=== PATIENT | male | born 1955 | race Caucasian/White ===

== ENCOUNTER → 2017-03-03 | Outpatient (CLI) | payer OTHER | LOC: M RAD 07:38 | DX: I65.23 Occlusion and stenosis of bilateral carotid arteries (principal) | CPT/HCPCS: 93880 ==

== ENCOUNTER → 2017-03-05 | Outpatient (CLI) | payer OTHER | LOC: M CARPUL 09:15 | DX: H34.212 Partial retinal artery occlusion, left eye (principal); I34.8 Other nonrheumatic mitral valve disorders; I34.0 Nonrheumatic mitral (valve) insufficiency | CPT/HCPCS: 93306 ==

== ENCOUNTER 2017-03-23 12:23 | Day surgery (SDC) | payer OTHER ==
[2017-03-23] MEDS ORDERED: CETACAINE SPRAY 5GM As Ordered (13:08)
[2017-03-23] MEDS ORDERED: LIDOCAINE VISCOUS 2% SOLN 15ML UDC As Ordered (13:08)
[2017-03-23] MEDS ORDERED: MIDAZOLAM INJ 2 MG/2 ML VIAL (J2250) As Ordered ×3 (13:29→13:35)
== END 2017-03-23 14:40 | disposition home or self-care (01) ==
LOC: M OPP 14:40
DX: H34.212 Partial retinal artery occlusion, left eye (principal); I75.89 Atheroembolism of other site; I34.0 Nonrheumatic mitral (valve) insufficiency; I34.8 Other nonrheumatic mitral valve disorders; R94.31 Abnormal electrocardiogram [ECG] [EKG]; I25.10 Atherosclerotic heart disease of native coronary artery without angina pectoris; I11.9 Hypertensive heart disease without heart failure; E11.9 Type 2 diabetes mellitus without complications; G47.33 Obstructive sleep apnea (adult) (pediatric); J44.9 Chronic obstructive pulmonary disease, unspecified; Z68.38 Body mass index [BMI] 38.0-38.9, adult; F17.210 Nicotine dependence, cigarettes, uncomplicated; Z79.82 Long term (current) use of aspirin; Z79.899 Other long term (current) drug therapy
CPT/HCPCS: J2250

== ENCOUNTER → 2018-02-03 | Outpatient (REF) | payer OTHER ==
[~2018-02-03] MED LIST: AMLO1TAB37 PO; ASPI81CH32 PO; ATOR80TA59 PO; METF500T13 PO; MULTTAB12 PO
== END ==
LOC: M LAB REF 16:31
PROVIDERS: ATTEND Internal Medicine
DX: N52.9 Male erectile dysfunction, unspecified (principal)

== ENCOUNTER → 2021-03-07 | Outpatient (REF) | payer OTHER ==
[~2021-03-07] MED LIST changes: -ASPI81CH32 PO; +ASPI81CH33 PO
[2021-03-07 12:48] LABS: MALB URINE SIEMENS 29.1 MG/L; MAU/CREAT RATIO 28.8 MCG/MG (0.0-30.0)
== END ==
LOC: M LAB REF 11:47
PROVIDERS: ATTEND Internal Medicine
DX: E11.9 Type 2 diabetes mellitus without complications (principal)

== ENCOUNTER → 2022-01-12 | Outpatient (CLI) | payer MEDICARE, OTHER ==
[~2022-01-12] MED LIST changes: +BENA40TA84 PO; +HYDR50TAB PO; +METF-838 PO
== END ==
LOC: M LABSMTC 08:58
PROVIDERS: ATTEND Anesthesiology
DX: Z01.812 Encounter for preprocedural laboratory examination (principal); Z11.52 Encounter for screening for COVID-19

== ENCOUNTER 2022-01-16 06:48 | Day surgery (SDC) | payer MEDICARE ==
[~2022-01-16] VITALS: Ht 167.6 cm; Wt 111.6 kg
[~2022-01-16 06:48] MED LIST changes: +NS 1,000 ML IV ONE; +SIMETHICONE 40MG/0.6ML DROPS 30ML As Ordered ONE
[2022-01-16] MEDS ORDERED: propofoL 200 MG/20 ML VIAL As Ordered ONE ×2 (08:52→09:03)
[2022-01-16 09:26] VITALS: BP 147/84
== END 2022-01-16 09:28 | disposition home or self-care (01) ==
LOC: M OPP 06:48
PROVIDERS: ATTEND Internal Medicine Gastroenterology
DX: D12.2 Benign neoplasm of ascending colon (principal); D12.3 Benign neoplasm of transverse colon; D12.4 Benign neoplasm of descending colon; K63.5 Polyp of colon; K57.30 Diverticulosis of large intestine without perforation or abscess without bleeding; K64.8 Other hemorrhoids; R19.5 Other fecal abnormalities; E11.9 Type 2 diabetes mellitus without complications; G47.30 Sleep apnea, unspecified; I10 Essential (primary) hypertension; Z99.89 Dependence on other enabling machines and devices; Z79.02 Long term (current) use of antithrombotics/antiplatelets; Z79.82 Long term (current) use of aspirin; Z79.84 Long term (current) use of oral hypoglycemic drugs; Z79.899 Other long term (current) drug therapy; Z80.1 Family history of malignant neoplasm of trachea, bronchus and lung

== ENCOUNTER → 2022-02-20 | Outpatient (CLI) | payer MEDICARE ==
[~2022-02-20] MED LIST changes: -NS 1,000 ML IV ONE; -SIMETHICONE 40MG/0.6ML DROPS 30ML As Ordered ONE
== END ==
LOC: M RAD 07:28
PROVIDERS: ATTEND Internal Medicine
DX: Z12.2 Encounter for screening for malignant neoplasm of respiratory organs (principal); F17.211 Nicotine dependence, cigarettes, in remission

== ENCOUNTER → 2022-08-12 | Outpatient (CLI) | payer MEDICARE | LOC: M RAD 10:03 | PROVIDERS: ATTEND Internal Medicine | DX: I75.89 Atheroembolism of other site (principal) ==

== ENCOUNTER → 2023-03-19 | Outpatient (CLI) | payer MEDICARE | LOC: M RAD 09:03 | PROVIDERS: ATTEND Internal Medicine | DX: Z12.2 Encounter for screening for malignant neoplasm of respiratory organs (principal); F17.211 Nicotine dependence, cigarettes, in remission; J43.8 Other emphysema; I25.10 Atherosclerotic heart disease of native coronary artery without angina pectoris ==

== ENCOUNTER → 2024-04-12 | Outpatient (CLI) | payer MEDICARE | LOC: M RAD 12:59 | PROVIDERS: ATTEND Internal Medicine | DX: F17.211 Nicotine dependence, cigarettes, in remission (principal); R91.1 Solitary pulmonary nodule; J98.11 Atelectasis; I25.10 Atherosclerotic heart disease of native coronary artery without angina pectoris; D35.02 Benign neoplasm of left adrenal gland ==